=== PATIENT | female | born 1960 | race Two or more races ===

== ENCOUNTER 2025-02-11 18:29 | Emergency (ER) | payer BC, OTHER ==
[~2025-02-11] VITALS: Ht 162.6 cm; Wt 83.0 kg
--- NOTE | 2025-02-11 21:08 | ED.PDOC ---
Musculoskeletal HPI Comments 64 y/o F, presets to the ED for CC of lower extremity swelling. Patient states, she has been experiencing left-lower leg swelling/pain following completion of a [address] yesterday (02/10/25). Patient reports, slight pain with ambulation. Patient denies numbness, tingling, weakness, or loss of sensation. No other symptoms or modifying factors are present at this time. Chief Complaint: Lower Extremity Time Seen by MD: 20:00 Reviewed Notes: Nurses Notes, Medications, Allergies Allergies: Coded Allergies: Amoxicillin (Verified Allergy, Unknown, 02/11/25) Penicillins (Verified Allergy, Unknown, 02/11/25) Information Source: Patient Mode of Arrival: Ambulatory Location: Left Extremity Location: Leg Timing: Days Prehospital treatment: None Severity: Moderate Able to Move Extremity: Yes Bear Weight: Fully Pain: Moderate Mechanism: Spontaneous Circumstances: Spontaneous Onset of Symptoms: Spontaneous Symptoms: Swelling, Pain DVT Risk Factors: NONE Associated signs and symptoms: Leg pain Past Medical History PAST MEDICAL HISTORY: Denies Surgical History: Denies all surgeries RECREATION PROGRAM SPECIALIST History: Denies all RECREATION PROGRAM SPECIALIST Hx Family History Family History: Unknown Social History Smoker: Non-Smoker Alcohol: Denies ETOH Use Drugs: Denies Drug Use Lives In: Home Constitutional: denies: chills, diaphoresis, fatigue, fever, malaise, sweats, weakness, others EENTM: denies: blurred vision, double vision, ear bleeding, ear discharge, ear drainage, ear pain, ear ringing, eye pain, eye redness, hearing loss, mouth pain, mouth swelling, nasal discharge, nose bleeding, nose congestion, nose pain, photophobia, tearing, throat pain, throat swelling, voice changes, others Respiratory: denies: cough, hemoptysis, orthopnea, SOB at rest, shortness of breath, SOB with excertion, stridor, wheezing, others Cardiovascular: denies: chest pain, dizzy spells, diaphoresis, Dyspnea on exertion, edema, irregular heart beat, left arm pain, lightheadedness, palpitations, PND, syncope, others Gastrointestinal: denies: abdomen distended, abdominal pain, blood streaked bowels, constipated, diarrhea, dysphagia, difficulty swallowing, hematemesis, melena, nausea, poor appetite, poor fluid intake, rectal bleeding, rectal pain, vomiting, others Genitourinary: denies: abnormal vagina bleeding, burning, dyspareunia, dysuria, flank pain, frequency, hematuria, incontinence, pain, , vagina discharge, urgency, others Neurological: denies: dizziness, fainting, headache, left sided numbness, left sided weakness, numbness, paresthesia, pre-existing deficit, right sided numbness, right sided weakness, seizure, speech problems, tingling, tremors, weakness, others Musculoskeletal: reports: others (left leg pain); denies: back pain, gout, joint pain, joint swelling, muscle pain, muscle stiffness, neck pain Integumetry: denies: bruises, change in color, change in hair/nails, dryness, laceration, lesions, lumps, rash, wounds, others Allergic/Immunocompromised: denies: Difficulty Healing, Frequent Infections, Hives, Itching, others Hematologic/Lymphatic: denies: anemia, blood clots, easy bleeding, easy bruising, swollen glands, others Endocrine: denies: excessive hunger, excessive sweating, excessive thirst, excessive urination, flushing, intolerance to cold, intolerance to heat, unexplained weight gain, unexplained weight loss, others Psychiatric: denies: anxiety, bipolar disorder, depression, hopeless, panic disorder, schizophrenia, sleepless, suicidal, others All Other Systems: Reviewed and Negative Physical Exam General Appearance: No Apparent Distress, Normal HEENT: Normal ENT Inspection, Pharynx Normal Neck: Full Range of Motion, Non-Tender, Normal, Normal Inspection Respiratory: Chest Non-Tender, Lungs Clear, No Accessory Muscle Use, No Respiratory Distress, Normal Breath Sounds Cardiovascular: No Edema, No Murmur, No Gallop, Normal Peripheral Pulses, Regular Rate/Rhythm Breast Exam: Deferred Gastrointestinal: No Organomegaly, Non Tender, No Pulsatile Mass, Normal Bowel Sounds, Soft Genitalia: Deferred Pelvic: Deferred Rectal: Deferred Extremities: No calf tenderness, Normal capillary refill, Normal inspection, Normal range of motion, Non-tender, No pedal edema Musculoskeletal : Location: Left Extremity Location: Ankle, Leg Apperance: Swelling (positive jonathan's sign, distal pulse weak) Neurologic: Alert, apartment locator II-XII nml as Tested, No Motor Deficits, Normal Affect, Normal Mood, No Sensory Deficits Cerebellar Function: Normal Reflexes: Normal Skin: Dry, Normal Color, Warm Lymphatic: No Adenopathy Was a procedure done? Was a procedure done?: No Differential Diagnosis EXT Differential Diagnosis: Deep Vein Thrombosis, Arthritis, Bursitis X-Ray, Labs, Meds, VS Vital Signs Date Time Temp Pulse Resp B/P (MAP) Pulse Ox O2 Delivery O2 Flow Rate FiO2 02/11/25 20:52 100 19 97 Room Air 02/11/25 20:52 99.9 100 19 137/81 (99) 97 99.9 02/11/25 18:31 98.5 108 16 164/96 97 98.5 X-Ray, Labs, Meds, VS Comment Positive DVT on ultrasound Patient be started on Eliquis Follow up with PCP next available appointment Return to emerge department if symptoms worsen. Time of 1ST Reevaluation: 20:30 Reevaluation 1ST: Unchanged Patient Education/Counseling: Diagnosis, Treatment, Need For Follow Up (With the PCP in the next 2-3 days. Return to emergency department if symptoms worsen.) Family Education/Counseling: No Family Present Departure 1 Departure Time of Disposition: 22:17 Impression: Primary Impression: Left leg DVT Qualified Codes: I82.412 - Acute embolism and thrombosis of left femoral vein Disposition: 01 HOME / SELF CARE / HOMELESS Condition: Stable e-Prescriptions Hydrocodone-Acetaminophen (Hydrocodone Bitartrate/AC 5-325 mg) 1 Tab Tab 1 TAB PO TID PRN, #20 TAB Prov: YUAN GRAMAJO 02/11/25 Apixaban Base (Eliquis Starter Pack) 5 Mg Tab 5 MG PO DAILY, #1 TAB Prov: YUAN GRAMAJO 02/11/25 Discharged With: Self Critical Care Note Critical Care Time?: No Stability Stability form required: No Heart Score Heart Score: Heart Score Response (Comments) Value History N/A 0 EKG N/A 0 Age N/A 0 Risk Factors N/A 0 Troponin N/A 0 Total 0 I personally scribed for YUAN GRAMAJO ([email or web address]) on 02/11/25 at 21:08. Electronically submitted by Edie Blue ([email or web address]). YUAN GRAMAJO Feb 11, 2025 21:08
[2025-02-11] MEDS ORDERED: HYDR-4902 PO (22:21)
[2025-02-11] MEDS ORDERED: APIX5TAB4 PO (22:21)
--- NOTE | 2025-02-11 22:39 | DVH ---
CLINICAL HISTORY: Swelling. TECHNIQUE: Color and duplex doppler imaging of the left lower extremity veins was performed. Vessel compression if possible was also performed. COMPARISON: None available. FINDINGS: Left common femoral vein: Nonocclusive thrombus of the common femoral vein/greater saphenous vein bifurcation. Left femoral vein: Nonocclusive thrombus of the common femoral vein/proximal femoral vein bifurcation. Left popliteal vein: Normal compressibility and flow. IMPRESSION: Nonocclusive deep vein thrombosis seen within the left common femoral vein, greater saphenous vein, and proximal femoral vein. These findings were reported by the pencil sorter to JAME Strauss at the time of the preliminary findings.
[2025-02-11 22:43] VITALS: BP 148/77; PULSE 103; RESP 18; TEMP 100.2; O2SAT 96
[2025-02-11] MEDS: KETOROLAC TROMETH 30 MG/ML 1ML VIAL IM ONE (23:01)
== END 2025-02-11 23:08 | disposition home or self-care (01) ==
LOC: ER 18:29
DX: I82.402 Acute embolism and thrombosis of unspecified deep veins of left lower extremity (principal); Z88.0 Allergy status to penicillin
CPT/HCPCS: 93971; 96372; 99285; J1885